=== PATIENT | female | born 1945 | race Caucasian/White ===

== ENCOUNTER 2022-04-23 17:35 | Inpatient (IN) | payer OTHER, MEDICAID ==
[~2022-04-23] VITALS: Ht 165.1 cm; Wt 91.2 kg
[2022-04-23] MEDS ORDERED: MORPHINE SULFATE 4 MG/ML CPJ (NOT FOR IM USE) IV STA (18:04)
[2022-04-23] MEDS ORDERED: ONDANSETRON HCL 4MG/2ML INJ IV STA (18:04)
[2022-04-23] MEDS ORDERED: SODIUM CHLORIDE 0.9% 1,000 ML IV ONE (18:15)
[2022-04-23 19:18] LABS: BASOPHILS % 0.4 % (0.0-2.0); EOSINOPHILS % 0.4 % (0.0-5.0); HEMATOCRIT. 36.8 % (36.0-48.0); HEMOGLOBIN. 11.6 g/dL (12.0-16.0); LYMPHOCYTES % 9.1 % (20.0-50.0); MEAN CORPUSCULAR HEMOGLOBIN 28.1 pg (28.0-32.0); MEAN CORPUSCULAR VOLUME 89.1 fL (81.0-99.0); MEAN PLATELET VOLUME 8.5 fl (7.4-10.4); MONOCYTES % 4.2 % (2.0-8.0); NEUTROPHILS % 85.9 % (40.0-76.0); PLATELET 265 x1000/uL (130-400); RED BLOOD CELL COUNT 4.13 mill/uL (4.2-5.4); RED CELL DISTRIBUTION WIDTH 14.6 % (11.6-14.6)
[2022-04-23 19:19] LABS: CHLORIDE 101 mEq/L (98-107)
[2022-04-23 19:20] LABS: INR 0.9; PARTIAL THROMBOPLASTIN TIME 25.6 sec (23.4-31.0); PROTHROMBIN TIME 9.9 sec (9.6-11.0)
[2022-04-23] MEDS ORDERED: NALOXONE HCL 0.4MG/ML VIAL IV PRN (22:00)
[2022-04-23] MEDS: HYDROCODONE/ACETAMINOPHEN 10/325MG TABLET PO PRN (22:05)
[2022-04-23 23:00] VITALS: BP 110/59
[2022-04-24] VITALS: BP 110/59
[2022-04-24] MEDS ORDERED: ATOR40TA70 PO (00:19)
[2022-04-24] MEDS ORDERED: TRAM50TA3 PO (00:19)
[2022-04-24] MEDS ORDERED: LORAZEPAM (00:19)
[2022-04-24] MEDS ORDERED: DICL100G31 TP (00:19)
[2022-04-24] MEDS ORDERED: GABA-532 PO (00:19)
[2022-04-24] MEDS ORDERED: AZEL6DRO5 EACHEYE (00:19)
[2022-04-24] MEDS ORDERED: LORAZEPAM PO (00:19)
[2022-04-24] MEDS ORDERED: CLOP75TA33 PO (00:19)
[2022-04-24] MEDS ORDERED: AMLO5TAB88 PO (00:19)
[2022-04-24] MEDS ORDERED: LOSA100T32 PO (00:19)
[2022-04-24] MEDS ORDERED: HYDROCODONE/ACETAMINOPHEN 10/325MG TABLET PO PRN (01:15)
[2022-04-24] MEDS ORDERED: LORAZEPAM 1MG TABLET PO PRN (01:15)
[2022-04-24] MEDS ORDERED: TRAMADOL 50MG TABLET PO PRN ×2 (01:15)
[2022-04-24] MEDS ORDERED: DEXTROSE 50% WATER 50ML SYRINGE IV PRN (01:30)
[2022-04-24 04:00] VITALS: BP 101/52
[2022-04-24] MEDS: BLOOD SUGAR DIAGNOSTIC STRIP TEST SCH ×4 (06:01→21:30)
[2022-04-24] MEDS: HYDROCODONE/ACETAMINOPHEN 10/325MG TABLET PO PRN (06:01)
[2022-04-24 06:17] LABS: HEMATOCRIT 28.5 % (36.0-48.0); HEMOGLOBIN 9.3 g/dL (12.0-16.0); MEAN CORPUSCULAR HEMOGLOBIN 28.7 pg (28.0-32.0); MEAN CORPUSCULAR VOLUME 87.5 fL (81.0-99.0); PLATELET 215 x1000/uL (130-400); RED BLOOD CELL COUNT 3.26 mill/uL (4.2-5.4); RED CELL DISTRIBUTION WIDTH 14.5 % (11.6-14.6)
[2022-04-24 06:41] LABS: CHLORIDE 103 mEq/L (98-107)
[2022-04-24 07:00] LABS: HDL CHOLESTEROL 36 mg/dL (40-59); LDL CHOLESTEROL 50 mg/dL (5-100)
[2022-04-24 08:00] VITALS: BP 105/50
[2022-04-24] MEDS: AMLODIPINE 5MG TABLET PO SCH (08:05)
[2022-04-24] MEDS: LOSARTAN POTASSIUM 100 MG TABLET PO SCH (08:05)
[2022-04-24] MEDS ORDERED: LOSARTAN POTASSIUM 100 MG TABLET PO SCH (09:00)
[2022-04-24] MEDS ORDERED: GABAPENTIN 300MG CAPSULE PO SCH (09:00)
[2022-04-24] MEDS ORDERED: AMLODIPINE 5MG TABLET PO SCH (09:00)
[2022-04-24] MEDS ORDERED: CLOPIDOGREL 75MG TABLET PO SCH ×2 (09:00)
[2022-04-24] MEDS: GABAPENTIN 300MG CAPSULE PO SCH (09:06)
[2022-04-24] MEDS: ENOXAPARIN 40MG/0.4ML SYR SUBCUT SCH (09:07)
[2022-04-24] MEDS: INSULIN LISPRO 100 UNITS/ML SUBCUT SCH ×4 (09:25→22:01)
[2022-04-24] MEDS: INSULIN GLARGINE 100 UNITS/ML SUBCUT SCH ×2 (09:25→22:01)
[2022-04-24 12:00] VITALS: BP 109/55
[2022-04-24 16:00] VITALS: BP 99/59
[2022-04-24 16:11] LABS: CLARITY URINE CLOUDY (CLEAR); COLOR URINE YELLOW (YELLOW); KETONES URINE TRACE (NEGATIVE); LEUKOCYTE ESTERASE URINE 2+ (NEGATIVE); NITRITE URINE POSITIVE (NEGATIVE); OCCULT BLOOD URINE TRACE (NEGATIVE); PROTEIN URINE 1+ (NEGATIVE); SPECIFIC GRAVITY URINE 1.025 (1.005-1.030)
[2022-04-24] MEDS ORDERED: ATORVASTATIN CALCIUM 40MG TABLET PO SCH (21:00)
[2022-04-24] MEDS: ATORVASTATIN CALCIUM 40MG TABLET PO SCH (21:21)
[2022-04-25] VITALS (14 sets, daily range): BP systolic 89–127; BP diastolic 33–67
[2022-04-25] MEDS ORDERED: ACETAMINOPHEN 650MG SUPP PR PRN (04:30)
[2022-04-25] MEDS: BLOOD SUGAR DIAGNOSTIC STRIP TEST SCH ×4 (06:45→21:00)
[2022-04-25] MEDS ORDERED: VANCOMYCIN HCL 1 GM/VIAL ONE (06:56)
[2022-04-25] MEDS ORDERED: BUPIVACAINE HCL/PF 0.5% (5MG/ML) 30ML ONE (06:57)
[2022-04-25] MEDS ORDERED: BUPIVACAINE HCL/PF 0.25% (2.5MG/ML) 10ML ONE (07:12)
[2022-04-25] MEDS ORDERED: POLYMYXIN B SULFATE 500000 UNITS/VIAL ONE (07:13)
[2022-04-25] MEDS: INSULIN LISPRO 100 UNITS/ML SUBCUT SCH ×4 (07:50→22:02)
[2022-04-25] MEDS ORDERED: ONDANSETRON HCL 4MG/2ML INJ IV PRN (08:15)
[2022-04-25] MEDS ORDERED: HYDROMORPHONE HCL/PF 2MG/ML CPJ IV PRN (08:15)
[2022-04-25] MEDS ORDERED: LABETALOL 5MG/ML SYR 20 MG/4 ML SYRINGE IV PRN (08:15)
[2022-04-25] MEDS ORDERED: MEPERIDINE HCL/PF 25MG/ML CPJ IV PRN (08:15)
[2022-04-25] MEDS ORDERED: CEFTRIAXONE 1 G PREMIX 50 ML IV SCH (08:30)
[2022-04-25] MEDS: GABAPENTIN 300MG CAPSULE PO SCH (09:00)
[2022-04-25] MEDS: AMLODIPINE 5MG TABLET PO SCH (09:00)
[2022-04-25] MEDS: ENOXAPARIN 40MG/0.4ML SYR SUBCUT SCH (09:00)
[2022-04-25] MEDS: LOSARTAN POTASSIUM 100 MG TABLET PO SCH (09:00)
[2022-04-25] MEDS ORDERED: CEFTRIAXONE 1,000 MG in DEXTROSE 5% WATER 50 ML IV SCH (10:00)
[2022-04-25] MEDS: CEFAZOLIN 2,000 MG in DEXT 5% WATER 100 ML IV SCH ×2 (10:00→18:52)
[2022-04-25] MEDS: INSULIN GLARGINE 100 UNITS/ML SUBCUT SCH ×2 (10:00→22:02)
[2022-04-25] MEDS ORDERED: EPHEDRINE SULFATE 50MG/ML VIAL IV NR (10:30)
[2022-04-25 11:04] LABS: HEMATOCRIT 20.5 % (36.0-48.0); HEMOGLOBIN 6.4 g/dL (12.0-16.0)
[2022-04-25] MEDS: HYDROCODONE/ACETAMINOPHEN 10/325MG TABLET PO PRN (16:49)
[2022-04-25 21:05] LABS: HEMATOCRIT 29.3 % (36.0-48.0); HEMOGLOBIN 9.5 g/dL (12.0-16.0)
[2022-04-25] MEDS: ATORVASTATIN CALCIUM 40MG TABLET PO SCH (22:01)
[2022-04-26] VITALS: BP 110/40
[2022-04-26] MEDS: CEFAZOLIN 2,000 MG in DEXT 5% WATER 100 ML IV SCH ×3 (01:51→19:06)
[2022-04-26 04:00] VITALS: BP 119/50
[2022-04-26] MEDS: HYDROCODONE/ACETAMINOPHEN 10/325MG TABLET PO PRN ×4 (04:56→22:24)
[2022-04-26] MEDS: BLOOD SUGAR DIAGNOSTIC STRIP TEST SCH ×4 (06:44→20:25)
[2022-04-26 08:00] VITALS: BP 148/52
[2022-04-26] MEDS: GABAPENTIN 300MG CAPSULE PO SCH (09:12)
[2022-04-26] MEDS: AMLODIPINE 5MG TABLET PO SCH (09:12)
[2022-04-26] MEDS: INSULIN LISPRO 100 UNITS/ML SUBCUT SCH ×4 (09:17→20:24)
[2022-04-26] MEDS: LOSARTAN POTASSIUM 100 MG TABLET PO SCH (09:41)
[2022-04-26] MEDS: INSULIN GLARGINE 100 UNITS/ML SUBCUT SCH ×2 (09:51→21:09)
[2022-04-26 12:00] VITALS: BP 139/53
[2022-04-26] MEDS: DOCUSATE SODIUM 250MG CAPSULE PO SCH (12:34)
[2022-04-26 15:14] LABS: BASOPHILS % 0.5 % (0.0-2.0); EOSINOPHILS % 1.4 % (0.0-5.0); HEMATOCRIT. 25.6 % (36.0-48.0); HEMOGLOBIN. 8.7 g/dL (12.0-16.0); LYMPHOCYTES % 12.9 % (20.0-50.0); MEAN CORPUSCULAR VOLUME 88.2 fL (81.0-99.0); MEAN PLATELET VOLUME 8.3 fl (7.4-10.4); MONOCYTES % 7.4 % (2.0-8.0); NEUTROPHILS % 77.8 % (40.0-76.0); PLATELET 140 x1000/uL (130-400); RED CELL DISTRIBUTION WIDTH 14.5 % (11.6-14.6)
[2022-04-26 16:00] VITALS: BP 122/49
[2022-04-26 20:00] VITALS: BP 111/37
[2022-04-26] MEDS: ATORVASTATIN CALCIUM 40MG TABLET PO SCH (20:22)
[2022-04-27] VITALS: BP 100/45
[2022-04-27] MEDS: CEFAZOLIN 2,000 MG in DEXT 5% WATER 100 ML IV SCH ×2 (01:56→10:26)
[2022-04-27 04:00] VITALS: BP 119/63
[2022-04-27] MEDS: BLOOD SUGAR DIAGNOSTIC STRIP TEST SCH ×4 (05:33→21:10)
[2022-04-27 08:00] VITALS: BP 133/40
[2022-04-27 08:08] LABS: BASOPHILS % 0.5 % (0.0-2.0); EOSINOPHILS % 1.7 % (0.0-5.0); HEMATOCRIT. 23.2 % (36.0-48.0); HEMOGLOBIN. 7.9 g/dL (12.0-16.0); LYMPHOCYTES % 15.1 % (20.0-50.0); MEAN CORPUSCULAR HEMOGLOBIN 29.7 pg (28.0-32.0); MEAN CORPUSCULAR VOLUME 87.8 fL (81.0-99.0); MEAN PLATELET VOLUME 8.5 fl (7.4-10.4); MONOCYTES % 9.3 % (2.0-8.0); NEUTROPHILS % 73.4 % (40.0-76.0); PLATELET 163 x1000/uL (130-400); RED BLOOD CELL COUNT 2.65 mill/uL (4.2-5.4); RED CELL DISTRIBUTION WIDTH 14.3 % (11.6-14.6)
[2022-04-27] MEDS: INSULIN LISPRO 100 UNITS/ML SUBCUT SCH ×4 (08:47→21:09)
[2022-04-27] MEDS: DOCUSATE SODIUM 250MG CAPSULE PO SCH (08:48)
[2022-04-27] MEDS: AMLODIPINE 5MG TABLET PO SCH (08:48)
[2022-04-27] MEDS: GABAPENTIN 300MG CAPSULE PO SCH (08:48)
[2022-04-27] MEDS: LOSARTAN POTASSIUM 100 MG TABLET PO SCH (08:48)
[2022-04-27] MEDS: ENOXAPARIN 40MG/0.4ML SYR SUBCUT SCH (08:48)
[2022-04-27] MEDS: INSULIN GLARGINE 100 UNITS/ML SUBCUT SCH ×2 (10:29→21:10)
[2022-04-27] MEDS: HYDROCODONE/ACETAMINOPHEN 10/325MG TABLET PO PRN ×2 (10:32→15:48)
[2022-04-27 12:00] VITALS: BP 108/42
[2022-04-27 16:04] VITALS: BP 106/48
[2022-04-27 20:00] VITALS: BP 96/42
[2022-04-27] MEDS: ATORVASTATIN CALCIUM 40MG TABLET PO SCH (21:10)
[2022-04-28] VITALS: BP 111/56
[2022-04-28] MEDS: ACETAMINOPHEN 325MG TABLET PO PRN (00:56)
[2022-04-28 03:58] VITALS: BP 104/42
[2022-04-28] MEDS: HYDROCODONE/ACETAMINOPHEN 10/325MG TABLET PO PRN ×2 (05:04→21:34)
[2022-04-28] MEDS: BLOOD SUGAR DIAGNOSTIC STRIP TEST SCH ×4 (05:04→21:36)
[2022-04-28 06:15] LABS: BASOPHILS % 0.7 % (0.0-2.0); EOSINOPHILS % 2.3 % (0.0-5.0); HEMATOCRIT. 23.1 % (36.0-48.0); HEMOGLOBIN. 7.8 g/dL (12.0-16.0); LYMPHOCYTES % 18.3 % (20.0-50.0); MEAN CORPUSCULAR HEMOGLOBIN 29.6 pg (28.0-32.0); MEAN PLATELET VOLUME 8.1 fl (7.4-10.4); MONOCYTES % 8.6 % (2.0-8.0); NEUTROPHILS % 70.1 % (40.0-76.0); PLATELET 184 x1000/uL (130-400); RED BLOOD CELL COUNT 2.63 mill/uL (4.2-5.4); RED CELL DISTRIBUTION WIDTH 13.8 % (11.6-14.6)
[2022-04-28 08:00] VITALS: BP 97/44
[2022-04-28] MEDS: AMLODIPINE 5MG TABLET PO SCH (09:00)
[2022-04-28] MEDS: GABAPENTIN 300MG CAPSULE PO SCH (09:51)
[2022-04-28] MEDS: DOCUSATE SODIUM 250MG CAPSULE PO SCH (09:51)
[2022-04-28] MEDS: ENOXAPARIN 40MG/0.4ML SYR SUBCUT SCH (09:52)
[2022-04-28] MEDS: INSULIN LISPRO 100 UNITS/ML SUBCUT SCH ×4 (09:54→21:36)
[2022-04-28] MEDS: INSULIN GLARGINE 100 UNITS/ML SUBCUT SCH ×2 (09:58→21:35)
[2022-04-28] MEDS: LOSARTAN POTASSIUM 100 MG TABLET PO SCH (10:00)
[2022-04-28 12:00] VITALS: BP 107/46
[2022-04-28 16:00] VITALS: BP 116/48
[2022-04-28 20:00] VITALS: BP 132/48
[2022-04-28] MEDS: ATORVASTATIN CALCIUM 40MG TABLET PO SCH (21:33)
[2022-04-29] VITALS: BP 109/47
[2022-04-29 04:00] VITALS: BP 110/47
[2022-04-29] MEDS ORDERED: HYDROCODONE/ACETAMINOPHEN 10/325MG TABLET PO NR (04:15)
[2022-04-29] MEDS: BLOOD SUGAR DIAGNOSTIC STRIP TEST SCH ×4 (05:43→21:00)
[2022-04-29] MEDS: INSULIN LISPRO 100 UNITS/ML SUBCUT SCH ×4 (07:50→21:00)
[2022-04-29 08:00] VITALS: BP 113/44
[2022-04-29] MEDS ORDERED: LOSARTAN POTASSIUM 50 MG TABLET PO SCH (09:00)
[2022-04-29] MEDS ORDERED: AMLODIPINE 2.5MG TABLET PO SCH (09:00)
[2022-04-29] MEDS ORDERED: HYDROCODONE/ACETAMINOPHEN 10/325MG TABLET PO PRN (11:00)
[2022-04-29] MEDS: DOCUSATE SODIUM 250MG CAPSULE PO SCH (11:11)
[2022-04-29] MEDS: GABAPENTIN 300MG CAPSULE PO SCH (11:11)
[2022-04-29] MEDS: ENOXAPARIN 40MG/0.4ML SYR SUBCUT SCH (11:12)
[2022-04-29] MEDS ORDERED: NALOXONE HCL 0.4MG/ML VIAL IV PRN (11:15)
[2022-04-29] MEDS: INSULIN GLARGINE 100 UNITS/ML SUBCUT SCH (11:25)
[2022-04-29] MEDS: HYDROCODONE/ACETAMINOPHEN 10/325MG TABLET PO PRN ×2 (11:30→22:08)
[2022-04-29 12:27] VITALS: BP 114/49
[2022-04-29] MEDS ORDERED: LACTULOSE 20G/30ML UDC PO NR (12:30)
[2022-04-29 16:00] VITALS: BP 117/46
[2022-04-29 16:18] LABS: HEMATOCRIT 23.1 % (36.0-48.0); HEMOGLOBIN 7.7 g/dL (12.0-16.0)
[2022-04-29 20:00] VITALS: BP 121/56
[2022-04-29] MEDS ORDERED: DOCUSATE SODIUM 250MG CAPSULE PO SCH (20:45)
[2022-04-29] MEDS: ATORVASTATIN CALCIUM 40MG TABLET PO SCH (22:07)
[2022-04-29] MEDS: LACTULOSE 20G/30ML UDC PO PRN (22:08)
[2022-04-30] MEDS: INSULIN GLARGINE 100 UNITS/ML SUBCUT SCH ×3 (01:44→21:35)
[2022-04-30] MEDS: HYDROCODONE/ACETAMINOPHEN 10/325MG TABLET PO PRN ×3 (03:44→18:00)
[2022-04-30 04:00] VITALS: BP 116/53
[2022-04-30] MEDS: BLOOD SUGAR DIAGNOSTIC STRIP TEST SCH ×4 (07:31→21:32)
[2022-04-30] MEDS: LACTULOSE 20G/30ML UDC PO PRN (07:31)
[2022-04-30 08:00] VITALS: BP 126/59
[2022-04-30] MEDS: INSULIN LISPRO 100 UNITS/ML SUBCUT SCH ×4 (08:19→21:35)
[2022-04-30] MEDS: DOCUSATE SODIUM 250MG CAPSULE PO SCH (08:31)
[2022-04-30] MEDS: GABAPENTIN 300MG CAPSULE PO SCH (08:31)
[2022-04-30] MEDS: ENOXAPARIN 40MG/0.4ML SYR SUBCUT SCH (08:31)
[2022-04-30] MEDS: LOSARTAN POTASSIUM 25 MG TABLET PO SCH (08:31)
[2022-04-30 12:00] VITALS: BP 115/47
[2022-04-30 13:01] LABS: BASOPHILS % 0.6 % (0.0-2.0); EOSINOPHILS % 1.5 % (0.0-5.0); HEMATOCRIT. 25.2 % (36.0-48.0); HEMOGLOBIN. 8.4 g/dL (12.0-16.0); LYMPHOCYTES % 14.3 % (20.0-50.0); MEAN CORPUSCULAR HEMOGLOBIN 29.5 pg (28.0-32.0); MEAN CORPUSCULAR VOLUME 88.9 fL (81.0-99.0); MEAN PLATELET VOLUME 7.8 fl (7.4-10.4); MONOCYTES % 6.3 % (2.0-8.0); NEUTROPHILS % 77.3 % (40.0-76.0); PLATELET 307 x1000/uL (130-400); RED BLOOD CELL COUNT 2.83 mill/uL (4.2-5.4); RED CELL DISTRIBUTION WIDTH 14.2 % (11.6-14.6)
[2022-04-30 13:10] LABS: CHLORIDE 102 mEq/L (98-107)
[2022-04-30 16:00] VITALS: BP 126/40
[2022-04-30 20:00] VITALS: BP 108/40
[2022-04-30] MEDS: ATORVASTATIN CALCIUM 40MG TABLET PO SCH (21:32)
[2022-04-30] MEDS: ACETAMINOPHEN 325MG TABLET PO PRN (21:32)
[2022-05-01] VITALS: BP 106/41
[2022-05-01] MEDS: HYDROCODONE/ACETAMINOPHEN 10/325MG TABLET PO PRN ×5 (00:09→21:45)
[2022-05-01 04:00] VITALS: BP 134/54
[2022-05-01] MEDS: BLOOD SUGAR DIAGNOSTIC STRIP TEST SCH ×4 (06:31→21:45)
[2022-05-01] MEDS: INSULIN LISPRO 100 UNITS/ML SUBCUT SCH ×4 (07:12→21:00)
[2022-05-01 08:00] VITALS: BP 130/54
[2022-05-01] MEDS: ENOXAPARIN 40MG/0.4ML SYR SUBCUT SCH (08:56)
[2022-05-01] MEDS: DOCUSATE SODIUM 250MG CAPSULE PO SCH (08:57)
[2022-05-01] MEDS: LOSARTAN POTASSIUM 25 MG TABLET PO SCH (08:57)
[2022-05-01] MEDS: GABAPENTIN 300MG CAPSULE PO SCH (08:57)
[2022-05-01] MEDS: INSULIN GLARGINE 100 UNITS/ML SUBCUT SCH ×2 (10:17→21:48)
[2022-05-01 12:00] VITALS: BP 123/50
[2022-05-01 15:40] VITALS: BP 128/48
[2022-05-01 20:00] VITALS: BP 130/49
[2022-05-01] MEDS: ATORVASTATIN CALCIUM 40MG TABLET PO SCH (21:45)
[2022-05-02] VITALS: BP 142/58
[2022-05-02] MEDS: HYDROCODONE/ACETAMINOPHEN 10/325MG TABLET PO PRN ×5 (01:47→22:12)
[2022-05-02 04:00] VITALS: BP 135/47
[2022-05-02 07:23] LABS: BASOPHILS % 0.7 % (0.0-2.0); EOSINOPHILS % 2.1 % (0.0-5.0); HEMATOCRIT. 24.1 % (36.0-48.0); HEMOGLOBIN. 8.1 g/dL (12.0-16.0); LYMPHOCYTES % 16.1 % (20.0-50.0); MEAN CORPUSCULAR HEMOGLOBIN 29.7 pg (28.0-32.0); MEAN CORPUSCULAR VOLUME 88.6 fL (81.0-99.0); MEAN PLATELET VOLUME 7.4 fl (7.4-10.4); MONOCYTES % 7.4 % (2.0-8.0); NEUTROPHILS % 73.7 % (40.0-76.0); PLATELET 417 x1000/uL (130-400); RED BLOOD CELL COUNT 2.73 mill/uL (4.2-5.4); RED CELL DISTRIBUTION WIDTH 14.4 % (11.6-14.6)
[2022-05-02] MEDS: BLOOD SUGAR DIAGNOSTIC STRIP TEST SCH ×4 (07:27→21:15)
[2022-05-02] MEDS: INSULIN LISPRO 100 UNITS/ML SUBCUT SCH ×4 (07:43→21:00)
[2022-05-02 08:00] VITALS: BP 126/55
[2022-05-02 08:18] LABS: CHLORIDE 101 mEq/L (98-107)
[2022-05-02] MEDS: DOCUSATE SODIUM 250MG CAPSULE PO SCH (08:57)
[2022-05-02] MEDS: GABAPENTIN 300MG CAPSULE PO SCH (08:57)
[2022-05-02] MEDS: LOSARTAN POTASSIUM 25 MG TABLET PO SCH (08:57)
[2022-05-02] MEDS: ENOXAPARIN 40MG/0.4ML SYR SUBCUT SCH (08:57)
[2022-05-02] MEDS: INSULIN GLARGINE 100 UNITS/ML SUBCUT SCH ×2 (10:07→21:16)
[2022-05-02] MEDS ORDERED: KETOROLAC 15MG/ML VIAL IV NR (11:15)
[2022-05-02 12:00] VITALS: BP 122/51
[2022-05-02 15:49] VITALS: BP 113/45
[2022-05-02] MEDS ORDERED: LACTULOSE 20G/30ML UDC PO NR (17:00)
[2022-05-02 20:00] VITALS: BP 125/55
[2022-05-02] MEDS: ATORVASTATIN CALCIUM 40MG TABLET PO SCH (21:15)
[2022-05-03] VITALS (7 sets, daily range): BP systolic 108–127; BP diastolic 40–58
[2022-05-03] MEDS: HYDROCODONE/ACETAMINOPHEN 10/325MG TABLET PO PRN ×2 (05:03→14:18)
[2022-05-03] MEDS: BLOOD SUGAR DIAGNOSTIC STRIP TEST SCH ×4 (06:47→20:52)
[2022-05-03] MEDS: INSULIN LISPRO 100 UNITS/ML SUBCUT SCH ×4 (07:50→21:07)
[2022-05-03] MEDS: GABAPENTIN 300MG CAPSULE PO SCH (09:19)
[2022-05-03] MEDS: LOSARTAN POTASSIUM 25 MG TABLET PO SCH (09:19)
[2022-05-03] MEDS: DOCUSATE SODIUM 250MG CAPSULE PO SCH (09:20)
[2022-05-03] MEDS: ENOXAPARIN 40MG/0.4ML SYR SUBCUT SCH (09:20)
[2022-05-03] MEDS ORDERED: NA PHOS,M-B/NA PHOS,DI-BA ENEMA 118ML PR SCH (09:45)
[2022-05-03] MEDS: INSULIN GLARGINE 100 UNITS/ML SUBCUT SCH ×2 (10:54→21:07)
[2022-05-03] MEDS: ATORVASTATIN CALCIUM 40MG TABLET PO SCH (21:06)
[2022-05-04 04:00] VITALS: BP 135/59
[2022-05-04] MEDS: BLOOD SUGAR DIAGNOSTIC STRIP TEST SCH ×4 (07:20→21:00)
[2022-05-04] MEDS: INSULIN LISPRO 100 UNITS/ML SUBCUT SCH ×4 (07:50→21:00)
[2022-05-04 08:00] VITALS: BP 103/45
[2022-05-04] MEDS: LOSARTAN POTASSIUM 25 MG TABLET PO SCH (09:00)
[2022-05-04] MEDS: DOCUSATE SODIUM 250MG CAPSULE PO SCH (09:47)
[2022-05-04] MEDS: GABAPENTIN 300MG CAPSULE PO SCH (09:47)
[2022-05-04] MEDS: ENOXAPARIN 40MG/0.4ML SYR SUBCUT SCH (09:47)
[2022-05-04] MEDS: HYDROCODONE/ACETAMINOPHEN 10/325MG TABLET PO PRN (09:47)
[2022-05-04 12:00] VITALS: BP 110/49
[2022-05-04] MEDS: INSULIN GLARGINE 100 UNITS/ML SUBCUT SCH ×2 (12:09→21:33)
[2022-05-04 14:00] VITALS: BP 114/45
[2022-05-04 16:00] VITALS: BP 103/39
[2022-05-04 20:00] VITALS: BP 104/44
[2022-05-04] MEDS: ATORVASTATIN CALCIUM 40MG TABLET PO SCH (21:23)
[2022-05-04] MEDS: ACETAMINOPHEN 325MG TABLET PO PRN (21:24)
[2022-05-04] MEDS: LACTULOSE 20G/30ML UDC PO PRN (21:25)
[2022-05-05] VITALS: BP 126/48
[2022-05-05] MEDS: ACETAMINOPHEN 325MG TABLET PO PRN ×3 (03:02→18:23)
[2022-05-05 04:00] VITALS: BP 112/54
[2022-05-05] MEDS: BLOOD SUGAR DIAGNOSTIC STRIP TEST SCH ×4 (06:45→21:00)
[2022-05-05] MEDS: INSULIN LISPRO 100 UNITS/ML SUBCUT SCH ×4 (07:50→21:00)
[2022-05-05 08:00] VITALS: BP 122/41
[2022-05-05] MEDS: LOSARTAN POTASSIUM 25 MG TABLET PO SCH (09:00)
[2022-05-05] MEDS: DOCUSATE SODIUM 250MG CAPSULE PO SCH (09:02)
[2022-05-05] MEDS: GABAPENTIN 300MG CAPSULE PO SCH (09:02)
[2022-05-05] MEDS: ENOXAPARIN 40MG/0.4ML SYR SUBCUT SCH (09:03)
[2022-05-05] MEDS: INSULIN GLARGINE 100 UNITS/ML SUBCUT SCH ×2 (10:00→22:41)
[2022-05-05 12:00] VITALS: BP 132/51
[2022-05-05 16:00] VITALS: BP 110/41
[2022-05-05 20:00] VITALS: BP 91/50
[2022-05-05] MEDS: ATORVASTATIN CALCIUM 40MG TABLET PO SCH (22:26)
[2022-05-05] MEDS: HYDROCODONE/ACETAMINOPHEN 10/325MG TABLET PO PRN (22:29)
[2022-05-05] MEDS: LACTULOSE 20G/30ML UDC PO PRN (22:29)
[2022-05-06] VITALS: BP 124/46
[2022-05-06] MEDS: ACETAMINOPHEN 325MG TABLET PO PRN (00:45)
[2022-05-06 04:00] VITALS: BP 110/56
[2022-05-06 07:14] LABS: CHLORIDE 103 mEq/L (98-107)
[2022-05-06 07:16] LABS: BASOPHILS % 1.1 % (0.0-2.0); EOSINOPHILS % 4.9 % (0.0-5.0); HEMATOCRIT. 27.5 % (36.0-48.0); LYMPHOCYTES % 19.6 % (20.0-50.0); MEAN CORPUSCULAR HEMOGLOBIN 29.5 pg (28.0-32.0); MEAN CORPUSCULAR VOLUME 90.6 fL (81.0-99.0); MEAN PLATELET VOLUME 7.1 fl (7.4-10.4); MONOCYTES % 7.2 % (2.0-8.0); NEUTROPHILS % 67.2 % (40.0-76.0); PLATELET 649 x1000/uL (130-400); RED BLOOD CELL COUNT 3.03 mill/uL (4.2-5.4); RED CELL DISTRIBUTION WIDTH 15.5 % (11.6-14.6)
[2022-05-06] MEDS: HYDROCODONE/ACETAMINOPHEN 10/325MG TABLET PO PRN ×2 (07:19→20:53)
[2022-05-06] MEDS: BLOOD SUGAR DIAGNOSTIC STRIP TEST SCH ×4 (07:27→21:00)
[2022-05-06 07:34] LABS: TOTAL IRON BINDING CAPACITY 233 ug/dL (250-450)
[2022-05-06 07:40] LABS: FOLIC ACID (FOLATE) SERUM 17.1 ng/mL (>5.38)
[2022-05-06 08:00] VITALS: BP 123/42
[2022-05-06] MEDS: LOSARTAN POTASSIUM 25 MG TABLET PO SCH (09:00)
[2022-05-06] MEDS: ENOXAPARIN 40MG/0.4ML SYR SUBCUT SCH (09:11)
[2022-05-06] MEDS: GABAPENTIN 300MG CAPSULE PO SCH (09:12)
[2022-05-06] MEDS: DOCUSATE SODIUM 250MG CAPSULE PO SCH (09:12)
[2022-05-06] MEDS: INSULIN LISPRO 100 UNITS/ML SUBCUT SCH ×4 (09:48→21:00)
[2022-05-06] MEDS: INSULIN GLARGINE 100 UNITS/ML SUBCUT SCH ×2 (10:00→23:20)
[2022-05-06 12:00] VITALS: BP 115/65
[2022-05-06 16:00] VITALS: BP 115/50
[2022-05-06 20:00] VITALS: BP 130/49
[2022-05-06] MEDS: ATORVASTATIN CALCIUM 40MG TABLET PO SCH (20:50)
[2022-05-06] MEDS: ENOXAPARIN 30MG/0.3ML SYR SUBCUT SCH (20:51)
[2022-05-06] MEDS: LACTULOSE 20G/30ML UDC PO PRN (23:22)
[2022-05-07] VITALS: BP 115/51
[2022-05-07 04:00] VITALS: BP 117/48
[2022-05-07] MEDS: HYDROCODONE/ACETAMINOPHEN 10/325MG TABLET PO PRN ×3 (05:25→20:54)
[2022-05-07] MEDS: BLOOD SUGAR DIAGNOSTIC STRIP TEST SCH ×4 (07:20→21:00)
[2022-05-07 08:00] VITALS: BP 120/43
[2022-05-07] MEDS: LOSARTAN POTASSIUM 25 MG TABLET PO SCH (09:57)
[2022-05-07] MEDS: GABAPENTIN 300MG CAPSULE PO SCH (09:57)
[2022-05-07] MEDS: DOCUSATE SODIUM 250MG CAPSULE PO SCH (09:57)
[2022-05-07] MEDS: INSULIN GLARGINE 100 UNITS/ML SUBCUT SCH ×2 (10:05→22:30)
[2022-05-07] MEDS: INSULIN LISPRO 100 UNITS/ML SUBCUT SCH ×4 (10:06→20:57)
[2022-05-07] MEDS: ENOXAPARIN 30MG/0.3ML SYR SUBCUT SCH ×2 (10:07→20:55)
[2022-05-07 12:00] VITALS: BP 111/42
[2022-05-07 16:00] VITALS: BP 108/42
[2022-05-07 20:00] VITALS: BP 137/41
[2022-05-07] MEDS: ATORVASTATIN CALCIUM 40MG TABLET PO SCH (20:54)
[2022-05-08] VITALS: BP 104/41
[2022-05-08] MEDS: ACETAMINOPHEN 325MG TABLET PO PRN (01:47)
[2022-05-08 04:00] VITALS: BP 127/47
[2022-05-08] MEDS: BLOOD SUGAR DIAGNOSTIC STRIP TEST SCH ×2 (07:39→12:23)
[2022-05-08] MEDS: INSULIN LISPRO 100 UNITS/ML SUBCUT SCH ×2 (07:50→12:34)
[2022-05-08 08:00] VITALS: BP 117/46
[2022-05-08] MEDS: LOSARTAN POTASSIUM 25 MG TABLET PO SCH (08:02)
[2022-05-08] MEDS: HYDROCODONE/ACETAMINOPHEN 10/325MG TABLET PO PRN ×2 (08:03→14:46)
[2022-05-08] MEDS: GABAPENTIN 300MG CAPSULE PO SCH (08:03)
[2022-05-08] MEDS: DOCUSATE SODIUM 250MG CAPSULE PO SCH (08:03)
[2022-05-08] MEDS: ENOXAPARIN 30MG/0.3ML SYR SUBCUT SCH (08:03)
[2022-05-08] MEDS: INSULIN GLARGINE 100 UNITS/ML SUBCUT SCH (09:54)
[2022-05-08 12:00] VITALS: BP 114/40
[2022-05-08 15:00] VITALS: BP 114/40
[2022-05-11 04:07] LABS: 25-HYDROXY VITAMIN D3 23 ng/mL (.)
== END 2022-05-08 15:35 | DRG 853 ==
LOC: ER 17:35 → 6WST 20:08 → ENRESERV 21:58 → 6EST 05-04 13:45
PROVIDERS: ADMIT Internal Medicine; ATTEND Internal Medicine
PROC: 0QS604Z Reposition Right Upper Femur with Internal Fixation Device, Open Approach (ICD-10-PCS; principal; 2022-04-25)
PROC: 30233N1 Transfusion of Nonautologous Red Blood Cells into Peripheral Vein, Percutaneous Approach (ICD-10-PCS; 2022-04-25)
DX: A41.51 Sepsis due to Escherichia coli [E. coli] (principal); S72.21XA Displaced subtrochanteric fracture of right femur, initial encounter for closed fracture; N39.0 Urinary tract infection, site not specified; D62 Acute posthemorrhagic anemia; I10 Essential (primary) hypertension; R26.89 Other abnormalities of gait and mobility; B96.20 Unspecified Escherichia coli [E. coli] as the cause of diseases classified elsewhere; E66.9 Obesity, unspecified; E78.00 Pure hypercholesterolemia, unspecified; M85.80 Other specified disorders of bone density and structure, unspecified site; W18.39XA Other fall on same level, initial encounter; R94.6 Abnormal results of thyroid function studies; E11.9 Type 2 diabetes mellitus without complications; R53.81 Other malaise; Z20.822 Contact with and (suspected) exposure to COVID-19; R62.7 Adult failure to thrive; Z68.33 Body mass index [BMI] 33.0-33.9, adult; Z87.891 Personal history of nicotine dependence; Z83.3 Family history of diabetes mellitus; Z79.02 Long term (current) use of antithrombotics/antiplatelets; Y93.89 Activity, other specified; Z86.73 Personal history of transient ischemic attack (TIA), and cerebral infarction without residual deficits; Z79.4 Long term (current) use of insulin; Z79.899 Other long term (current) drug therapy; Y92.098 Other place in other non-institutional residence as the place of occurrence of the external cause; Y99.8 Other external cause status; Z82.49 Family history of ischemic heart disease and other diseases of the circulatory system
CPT/HCPCS: 36415; 71045; 73502; 73521; 76000; 80048; 80053; 80061; 81003; 82306; 82607; 82728; 82746; 82947; 82962; 83036; 83540; 83550; 84443; 85014; 85018; 85025; 85027; 86850; 86900; 86920; 87077; 87186; 87426; 93005; 93306; 97110; 97116; 97162; 97166; 97530; 97535; 99285; C1713; C9803; J0690; J0696; J1650; J1815; J1885; J2270; J2405; J3370; J3490; J7030; J7060; P9016